=== PATIENT | female | born 1975 | race Caucasian/White ===

== ENCOUNTER 2017-01-08 15:35 | Emergency (ER) | payer BC ==
[2017-01-08] MEDS ORDERED: CYMBALTA60 M1 PO (16:03)
[2017-01-08] MEDS ORDERED: FOLIC ACID1 M1 PO (16:03)
[2017-01-08] MEDS ORDERED: SINGULAIR10 M1 PO (16:03)
[2017-01-08] MEDS ORDERED: SYNTHROID50 MC1 PO (16:04)
[2017-01-08] MEDS ORDERED: OMEPRAZOLE20 M3 PO (16:04)
[2017-01-08] MEDS ORDERED: MIBELAS 24 FE1 EACH PO (16:05)
[2017-01-08] MEDS ORDERED: COSENTYX P150 MG/1 M SC (16:06)
[2017-01-08] MEDS ORDERED: HYDROCODON-ACE1 EA17 PO (16:14)
== END 2017-01-08 17:26 ==
LOC: EDMED 15:35
DX: G43.909 Migraine, unspecified, not intractable, without status migrainosus (principal); J45.909 Unspecified asthma, uncomplicated; Z88.8 Allergy status to other drugs, medicaments and biological substances; Z79.899 Other long term (current) drug therapy
CPT/HCPCS: J1200; J1885; J2765; J7030